=== PATIENT | male | born 1980 | race Two or more races ===

== ENCOUNTER 2022-12-01 08:58 | Outpatient (CLI) | payer OTHER | END 2022-12-01 09:04 | disposition home or self-care (01) | LOC: RAD 08:58 | PROVIDERS: ATTEND Neuromusculoskeletal Medicine & OMM | DX: G70.00 Myasthenia gravis without (acute) exacerbation (principal) ==

== ENCOUNTER 2022-12-22 13:04 | Outpatient (CLI) | payer OTHER | END 2022-12-22 13:07 | disposition home or self-care (01) | LOC: NUCLEAR 13:04 | PROVIDERS: ATTEND Internal Medicine | DX: M81.0 Age-related osteoporosis without current pathological fracture (principal); Z92.241 Personal history of systemic steroid therapy ==